=== PATIENT | female | born 1960 | race Caucasian/White ===

== ENCOUNTER 2018-03-07 09:02 | Outpatient (CLI) | payer OTHER | END 2018-03-07 09:03 | disposition home or self-care (01) | LOC: BICMAMMO 09:02 | PROVIDERS: ATTEND Internal Medicine Geriatric Medicine | DX: Z12.31 Encounter for screening mammogram for malignant neoplasm of breast (principal); R92.1 Mammographic calcification found on diagnostic imaging of breast | CPT/HCPCS: 77063; 77067 ==

== ENCOUNTER 2019-08-12 10:22 | Outpatient (CLI) | payer OTHER ==
--- NOTE | 2019-08-12 11:12 | ULT ---
US Thyroid STANDARD: 08/12/2019 12:00 AM CLINICAL INDICATION: Hyperthyroidism. COMPARISON: None. FINDINGS: Right and left thyroid lobes are normal in size and echotexture. The right thyroid lobe measures 5.6 cm and the left thyroid lobe measures 5.4cm. No thyroid nodules are present. Scattered cysts are seen in both thyroid lobes. No cervical lymphadenopathy is noted. IMPRESSION: Multicystic thyroid.
--- NOTE | 2019-08-12 11:22 | MMO ---
Bilateral MAMMO Bilat Screen [facility]. CLINICAL HISTORY: Patient is 58 years old and is seen for diagnostic exam. VIEWS: The views performed were: . FILMS COMPARED: The present examination has been compared to a prior imaging study performed at [facility] on 03/07/2018. This study has been interpreted with the assistance of computer-aided detection. MAMMOGRAM FINDINGS: There are scattered fibroglandular densities. Finding 1: There are stable benign appearing calcifications seen in both breasts. Finding 2: There are stable benign appearing densities seen in both breasts. There are no suspicious masses, suspicious calcifications, or new areas of architectural distortion. IMPRESSION: THERE IS NO MAMMOGRAPHIC EVIDENCE OF MALIGNANCY. A ROUTINE FOLLOW-UP MAMMOGRAM IN 1 YEAR IS RECOMMENDED. THE RESULTS OF THIS EXAM WERE SENT TO THE PATIENT. ACR BI-RADS Category 2 - Benign finding MAMMOGRAPHY NOTE: 1. A negative mammogram report should not delay a biopsy if a dominant of clinically suspicious mass is present. 2. Approximately 10% to 15% of breast cancers are not detected by mammography. 3. Adenosis and dense breasts may obscure an underlying neoplasm. Reported by: MO HOLGUIN MD Electonically Signed: [id number]
== END 2019-08-12 10:23 | disposition home or self-care (01) ==
LOC: BICULT 10:22
PROVIDERS: ATTEND Family Medicine
DX: E05.90 Thyrotoxicosis, unspecified without thyrotoxic crisis or storm (principal); E04.1 Nontoxic single thyroid nodule
CPT/HCPCS: 76536; 77063; 77067

== ENCOUNTER 2019-09-02 10:33 | Outpatient (CLI) | payer OTHER ==
--- NOTE | 2019-09-02 14:33 | NM ---
RADIONUCLIDE PARATHYROID SCAN WITH PLANAR AND SPECT-CT IMAGES: HISTORY: Hyperparathyroidism, unspecified RADIOPHARMACEUTICAL:24mCi technetium 99m-sestamibi injected intravenously FINDINGS: There is physiologic uptake in the salivary glands and thyroid gland. No abnormal areas of tracer localization are seen in the neck or chest. IMPRESSION: No scintigraphic evidence of parathyroid adenoma
== END 2019-09-02 10:34 | disposition home or self-care (01) ==
LOC: NM 10:33
PROVIDERS: ATTEND Specialist
DX: E05.90 Thyrotoxicosis, unspecified without thyrotoxic crisis or storm (principal)
CPT/HCPCS: 78072; A9500

== ENCOUNTER 2020-07-08 06:32 | Outpatient (CLI) | payer OTHER ==
[2020-07-09 11:59] LABS: SARS-CoV-2 MS2 Positive; SARS-CoV-2 N Gene Negative; SARS-CoV-2 S Gene Negative; SARS-CoV-2 by NAA Not Detected (NotDetected); SARS-CoV-2 orf1ab Negative
== END 2020-07-08 06:33 | disposition home or self-care (01) ==
LOC: LABBT 06:32
PROVIDERS: ATTEND Neurological Surgery
DX: Z20.828 Contact with and (suspected) exposure to other viral communicable diseases (principal)
CPT/HCPCS: 87635; U0003

== ENCOUNTER 2020-07-13 05:44 | Day surgery (SDC) | payer OTHER ==
[2020-07-12 09:50] VITALS: BMI 28.9
--- NOTE | 2020-07-12 21:41 | HP ---
HISTORY OF PRESENT ILLNESS: Ms. Goldberg is a 59-year-old woman, referred by Dr. Moscoso for evaluation of a left lumbar radiculopathy. She has an MRI scan from [facility] that reveals a large disk extrusion with fragmentation on the left side at L4-5. Some of this could represent synovial cyst. She reports pain in addition and numbness over the distribution of the left L5 dermatome. She is having physical therapy and has attempted epidural steroid injection with minimal improvement in her symptoms. PAST SURGICAL HISTORY: Significant for bladder impedance, tonsillectomy appendectomy, resection of basal cell carcinoma, rotator cuff unspecified laterality. PAST MEDICAL HISTORY: Anxiety, hypertension. CURRENT MEDICATIONS: 1. Losartan. 2. Xanax. 3. Vyvanse. ALLERGIES: NO KNOWN DRUG ALLERGIES. ASSESSMENT: Lumbar herniated disk with radiculopathy. PLAN: Dr. Herrera met with the patient, reviewed imaging, and advocated for left L4-L5 decompression and diskectomy. He explained to the patient risks, benefits, and alternatives of the procedure. The patient expressed understanding and elected to move forward with surgery as discussed. I do believe the patient is mentally competent capable of making medical decisions for herself. We will move forward with surgery as planned. Job ID: [id number]
[2020-07-13] MEDS ORDERED: EPINEPHrine 1 MG/ML AMP ONE (06:10)
[2020-07-13] MEDS ORDERED: Thrombin 5000 UNITS/5 ML VIAL ONE (06:10)
[2020-07-13] MEDS ORDERED: Bupivacaine PF 0.5% 30 ML VIAL ONE (06:10)
[2020-07-13] MEDS ORDERED: Fentanyl 100 MCG/2 ML VIAL ONE ×2 (06:38→08:39)
[2020-07-13] MEDS ORDERED: Midazolam HCl 2 mg/2 ml Vial ONE ×2 (06:38→06:51)
[2020-07-13] MEDS ORDERED: Succinylcholine Chloride 20 MG/ML 10 ml SYRINGE FS ONE (08:12)
--- NOTE | 2020-07-13 08:51 | OP ---
DATE OF PROCEDURE: 07/13/2020 AGRICULTURAL EXTENSION EDUCATOR: Petar Landa PA-C INDICATION: Pain. DIAGNOSIS: Lumbar radiculopathy. PROCEDURES PERFORMED: Left L4-5 hemilaminectomy, synovial cyst resection, diskectomy. ANESTHESIA: General. DESCRIPTION OF PROCEDURE: The patient was brought into the operating room and placed under general anesthesia. She was flipped from the supine to prone position on the operating room table. A linear incision was planned over the L4-5 segment. After prepping and draping and after an appropriate preoperative pause, the incision was created. The soft tissues were swept left of midline. A self-retaining retractor was placed in the wound for optimal exposure. A C-arm image was performed to confirm the appropriate level. A high-speed cutting drill bit as well as 2, 3, and 4 mm Kerrisons were used to perform a laminectomy along the inferior aspect of L4 and superior aspect of L5. A synovial cyst was identified within the lateral recesses at L4-5 on the left. This was carefully resected until the lateral recess was decompressed. I then redirected our attention to the L4-5 disk where there was a small protuberant disk mass present. A right-angled nerve root retractor was placed to retract the descending L5 nerve root and an annulotomy was performed in the disk with an 11-blade knife. was used to remove the disk material crowding the lateral recesses. After completing the decompression, the wound was irrigated. Hemostasis was maintained throughout. The wound was then closed in anatomic layers, and a pressure dressing was applied. There were no known procedural complications. Job ID: [id number]
[2020-07-13] MEDS ORDERED: HYDROcodone/Acetaminophen 5/325 mg Tablet ONE (10:07)
[2020-07-13] MEDS ORDERED: Dexamethasone 20 MG/5 ML VIAL ONE (12:15)
[2020-07-13] MEDS ORDERED: Ketorolac Tromethamine 30 MG/ML VIAL ONE (12:15)
[2020-07-13] MEDS ORDERED: diphenhydrAMINE 50 MG/ML VIAL ONE (12:15)
[2020-07-13] MEDS ORDERED: PROPOFOL 200 MG/20 ML VIAL ONE (12:15)
[2020-07-13] MEDS ORDERED: Ondansetron PF 4 MG/2 ML Vial ONE (12:15)
[2020-07-13] MEDS ORDERED: Rocuronium Bromide 10 MG/ML (10ML VIAL) ONE (12:15)
[2020-07-13] MEDS ORDERED: Glycopyrrolate 0.2 MG/ML 5 ML SYRINGE ONE (12:15)
== END 2020-07-13 11:00 | disposition home or self-care (01) ==
LOC: SDC 05:44
PROVIDERS: ATTEND Neurological Surgery
PROC: 01NB0ZZ Release Lumbar Nerve, Open Approach (ICD-10-PCS; principal; 2020-07-13)
DX: M51.16 Intervertebral disc disorders with radiculopathy, lumbar region (principal); F41.9 Anxiety disorder, unspecified; I10 Essential (primary) hypertension; Z79.899 Other long term (current) drug therapy
CPT/HCPCS: 76000; J0171; J0690; J1100; J1200; J1885; J2250; J2405; J2704; J3010; S0020

== ENCOUNTER 2020-11-25 08:30 | Outpatient (CLI) | payer OTHER | END 2020-11-25 08:31 | disposition home or self-care (01) | LOC: TBSIIMAG 08:30 | PROVIDERS: ATTEND Family Medicine | DX: M62.521 Muscle wasting and atrophy, not elsewhere classified, right upper arm (principal); R51.9 Headache, unspecified; M47.812 Spondylosis without myelopathy or radiculopathy, cervical region | CPT/HCPCS: 70551; 72141 ==

== ENCOUNTER 2021-03-17 10:56 | Outpatient (CLI) | payer OTHER | END 2021-03-17 10:57 | disposition home or self-care (01) | LOC: BICMAMMO 10:56 | PROVIDERS: ATTEND Family Medicine | DX: Z12.31 Encounter for screening mammogram for malignant neoplasm of breast (principal) | CPT/HCPCS: 77063; 77067 ==

== ENCOUNTER 2022-05-04 10:39 | Outpatient (CLI) | payer OTHER | END 2022-05-04 10:40 | disposition home or self-care (01) | LOC: BICRAD 10:39 | PROVIDERS: ATTEND Family Medicine | DX: R05.2 Subacute cough (principal) | CPT/HCPCS: 71046 ==

== ENCOUNTER 2022-05-04 11:04 | Outpatient (CLI) | payer OTHER | END 2022-05-04 11:05 | disposition home or self-care (01) | LOC: BICMAMMO 11:04 | PROVIDERS: ATTEND Family Medicine | DX: Z12.31 Encounter for screening mammogram for malignant neoplasm of breast (principal) | CPT/HCPCS: 77063; 77067 ==

== ENCOUNTER 2023-07-17 20:23 | Emergency (ER) | payer OTHER ==
[2023-07-17] MEDS ORDERED: Morphine 4 MG/ML VIAL ONE (22:50)
== END 2023-07-17 23:02 | disposition home or self-care (01) ==
LOC: ERS 20:23
DX: S42.352A Displaced comminuted fracture of shaft of humerus, left arm, initial encounter for closed fracture (principal); I10 Essential (primary) hypertension; F17.210 Nicotine dependence, cigarettes, uncomplicated; Z79.899 Other long term (current) drug therapy; W18.30XA Fall on same level, unspecified, initial encounter
CPT/HCPCS: 96374; 96375; J2270

== ENCOUNTER 2024-06-15 16:09 | Outpatient (CLI) | payer BC | END 2024-06-15 16:10 | disposition home or self-care (01) | LOC: BICCT 16:09 | PROVIDERS: ATTEND Family Medicine Sports Medicine | DX: S42.212D Unspecified displaced fracture of surgical neck of left humerus, subsequent encounter for fracture with routine healing (principal) ==

== ENCOUNTER 2024-08-26 09:21 | Outpatient (CLI) | payer BC | END 2024-08-26 09:22 | disposition home or self-care (01) | LOC: RAD 09:21 | PROVIDERS: ATTEND Specialist | DX: E21.3 Hyperparathyroidism, unspecified (principal) | CPT/HCPCS: 78072; A9500 ==

== ENCOUNTER 2024-09-11 08:14 | Outpatient (CLI) | payer BC | END 2024-09-11 08:15 | disposition home or self-care (01) | LOC: CT 08:14 | PROVIDERS: ATTEND Orthopaedic Surgery | DX: M19.012 Primary osteoarthritis, left shoulder (principal); S42.212D Unspecified displaced fracture of surgical neck of left humerus, subsequent encounter for fracture with routine healing ==

== ENCOUNTER 2025-08-06 15:02 | Outpatient (CLI) | payer OTHER | END 2025-08-06 15:03 | disposition home or self-care (01) | LOC: BICMAMMO 15:02 | PROVIDERS: ATTEND Family Medicine | DX: Z12.31 Encounter for screening mammogram for malignant neoplasm of breast (principal) | CPT/HCPCS: 77063; 77067 ==